=== PATIENT | female | born 1990 | race Caucasian/White ===

== ENCOUNTER 2024-12-24 08:33 | Emergency (ER) | payer MEDICAID, SELFPAY ==
[2024-12-24] VITALS (40 sets, daily range): BP systolic 106–158; BP diastolic 65–112; PULSE 76–117; RESP 12–28; TEMP 36.5; O2SAT 94–99
--- NOTE | 2024-12-24 09:00 | DI.CT_ITS ---
Exam(s) CT HEAD WO EXAM: CT HEAD WO CLINICAL HISTORY: Seizure activity. TECHNIQUE: Imaging Protocol: Axial computed tomography images with coronal and sagittal reformatted images were created and reviewed COMPARISON: No exams were available for comparison FINDINGS: There are no skull fractures. There is no fluid in the visualized paranasal sinuses. There is no evidence of intracranial hemorrhage, mass effect, or shift of midline structures. There are no extra-axial fluid collections. The ventricles are not enlarged or shifted and there is no blood within the ventricular system nor within the basal cisterns. IMPRESSION: No acute intracranial findings on this noninfused CT scan of the brain. RADIATION DOSE DELIVERED: 869.92mGy.cm Total DLP DATA REPOSITORY: All CT scans at this facility are submitted to the National Radiology Data Registry (NRDR) Dose Index Registry (DIR) with the [employer] (ACR). RADIATION OPTIMIZATION: All CT scans at this facility use at least one of these dose optimization techniques: automated exposure control; mA and/or kV adjustment per patient size (includes targeted exams where dose is matched to clinical indication); or iterative reconstruction.
--- NOTE | 2024-12-24 09:04 | ED.GENADUL_ITS ---
Discharge Plan Disposition Patient Disposition: Home Condition: Stable Discharge Details Clinical Impression: Vomiting, Seizure-like activity, UTI (urinary tract infection) Primary Care Provider: Minerva Lopez ED Provider: Irais Esteves Home Meds and New Rx's Prescriptions: New cephalexin 500 mg tablet 500 mg PO BID 7 Days Qty: 14 0RF ondansetron 4 mg tablet,disintegrating 4 mg PO Q8H PRN (Reason: nausea and vomiting) 4 Days Qty: 9 0RF Rx Instructions: Take 1 tablet up to 3 times daily as needed for nausea and vomiting 20 minutes prior to meals. Continued oxcarbazepine 150 mg tablet 150 mg PO BID cyanocobalamin (vitamin B-12) [Vitamin B-12] 1,000 mcg tablet 1,000 mcg PO DAILY gabapentin 100 mg capsule 200 mg PO QHS norethindrone (contraceptive) [Deblitane] 0.35 mg tablet 0.35 mg PO DAILY Discharge Instructions Instructions: Urinary Tract Infection, Adult ED, Nausea and Vomiting, Adult ED, Seizures, Adult ED Additional Instructions: At this time the head CT is within normal limits. CT abdomen pelvis shows that you do have a couple of calcifications noted on the right side of your kidney. No evidence of appendicitis or bowel obstruction. It also appears you have a early urinary tract infection. Please take the medications with yogurt or a probiotic twice daily as directed for the next 7 days. Take the nausea medication 20 to 30 minutes before eating or drinking anything. You were given the first dose of the antibiotic here in the emergency department. Follow up with primary care provider in 3-5 days. Return to ED sooner if any worsening vomiting not able to hold down the medications, headache, fever or concerns. Thank you for allowing us to care for you today. Stand Alone Forms: Work Release Referrals: Minerva Lopez [Primary Care Provider, Medicine] - 3 days Referral Note: ER follow-up, call for an appointment Clinical Impression: UTI (urinary tract infection); Vomiting Discharge Data Discharge Date/Time-TO BE ENTERED AT DEPARTURE: 12/24/24 12:23 HPI General Mode of arrival: ambulatory . Date/Time Provider Initiated Documentation: 12/24/24 08:35 . Limitations to Documentation: no limitations . Information obtained by: patient, RN notes reviewed and old records reviewed . HPI Narrative: 34-year-old female presents to the ER with a chief complaint of seizure-like activity which occurred this morning while on the phone. Patient states she does have a history of seizures and was on the phone this morning when she states that her witnessed her making an odd noise, becoming rigid which lasted approximately 2 minutes per patient report. She then sat up and had violent emesis. This was also associated with very severe headache which has now resolved. She states she did try to take an Excedrin Migraine tablet prior to arrival but did vomit this up. She is alert and oriented x 4 upon arrival, denies any fever or chills neck pain or back pain. 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 She does take oxcarbazepine 150 mg twice daily. She did take this prior to arrival. She does also endorse diarrhea which she states is normal for her. Denies any chest pain shortness of breath cough recent injuries or falls or any other associated symptoms. She does endorse marijuana use denies any other drugs or alcohol. Last normal menstrual period was November 14. Related Data Home Medications ?Medication ?Instructions ?Recorded ?Confirmed cephalexin 500 mg tablet 500 mg PO BID 7 days #14 tab s 12/24/24 cyanocobalamin (vitamin B-12) 1,000 mcg PO DAILY 12/2412/24/24 1,000 mcg tablet (Vitamin B-12) gabapentin 100 mg capsule 200 mg PO QHS 12/24/2412/24 norethindrone (contraceptive) 0.35 0.35 mg PO DAILY 12/24/24 mg tablet (Deblitane) ondansetron 4 mg disintegrating 4 mg PO Q8H PRN nausea and 12/24/24 tablet vomiting 4 days #9 tabs oxcarbazepine 150 mg tablet 150 mg PO BID 12/24/2406/15 Previous Rx's ?Medication ?Instructions ?Recorded cephalexin 500 mg tablet 500 mg PO BID 7 days #14 tab s 12/24/24 ondansetron 4 mg disintegrating 4 mg PO Q8H PRN nausea and 12/24/24 tablet vomiting 4 days #9 tabs Allergies Allergy/AdvReac Type Severity Reaction Status Date / Time Iodinated Contrast Media Allergy Severe Anaphylaxis Verified 12/24/24 10:50 levetiracetam (From [facility]) Allergy Intermediate Other (See Verified 12/24/24 08:46 Comment) General Stated Complaint: Seizure KARISSA: 3 Review of Systems All systems reviewed & are unremarkable except as noted in HPI and below Gastrointestinal Gastrointestinal: Denies abdominal pain, Reports nausea and Reports vomiting Neurologic Neurologic: Reports as per HPI and Reports convulsions Exam Narrative Exam Narrative: Constitutional: Alert and oriented x3. Appears stated age. Normal body habitus. Head: Normocephalic, no trauma. Eyes: Pupils PERRL, Red reflex noted, EOM's intact. Eyelids symmetrical without lesions, discharge, or swelling. ENT: Bilateral TM's WNL, External ear normal to inspection, no mastoid TTP, swelling, or erythema, Nasal turbinates WNL, no nasal discharge. Normal dentition, Posterior pharynx WNL, no exudate. Chest: RRR, Normal S1, S2, distal pulses intact. Resp: Lungs clear to auscultation bilaterally, no wheezes, rales, or rhonchi. Abdomen: Soft, non-distended, Normoactive bowel sounds all 4 quads. Musculoskeletal: Normal gait, Moves all 4 extremities without difficulty. Skin: No suspicious rashes or lesions. Capillary refill less than 2 sec. Neurologic: Cranial nerves II-XII intact. Alert and oriented x 3. Motor: No deficits noted. Sensory: Intact bilaterally all 4 extremities. Hematologic/Lymphatic: No ecchymosis, no lymphadenopathy. Course Vital Signs Vital signs: Vital Signs Temperature 36.5 C 12/24/24 08:36 Pulse 117 H 12/24/24 08:36 Respiratory Rate 18 12/24/24 08:36 Blood Pressure 158/90 H 12/24/24 08:36 Pulse Oximetry 96 12/24/24 08:36 Temperature 36.5 C 12/24/24 08:36 Temperature Source Oral 12/24/24 08:36 Pulse 96 H 12/24/24 08:46 Pulse 98 H 12/24/24 08:46 Respiratory Rate 14 12/24/24 08:46 Respiratory Effort Normal, Non-Labored 12/24/24 08:55 Respiratory Depth Normal 12/24/24 08:55 Respiratory Pattern Normal 12/24/24 08:55 Blood Pressure 134/101 H 12/24/24 08:46 Blood Pressure Mean 111 12/24/24 08:46 Pulse Oximetry 96 12/24/24 08:46 Medical Decision Making 34-year-old female presents to the ER with a chief complaint of seizure-like activity which occurred this morning while on the phone. Patient states she does have a history of seizures and was on the phone this morning when she states that her witnessed her making an odd noise, becoming rigid which lasted approximately 2 minutes per patient report. She then sat up and had violent emesis. This was also associated with very severe headache which has now resolved. She states she did try to take an Excedrin Migraine tablet prior to arrival but did vomit this up. She is alert and oriented x 4 upon arrival, denies any fever or chills neck pain or back pain. 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 She does take oxcarbazepine 150 mg twice daily. She did take this prior to arrival. Workup ordered including CBC CMP lipase ethyl alcohol level, urinalysis urine test, head CT, liter of normal saline and 1 mg of lorazepam p.o. CBC shows a elevated white blood cell count at 22.86 neutrophils 20.12 lactate and blood cultures x 2 added onto labs. 0945: Called to bedside by balance staff inspector as patient believes she is having a seizure, she is awake and in bed, responsive, alert and answers my questions appropriately, she states she feels disoriented. She has received 1mg Lorazepam PO. she states this is typical of her normal seizures. VSS, will continue to monitor, NS infusing without difficulty. Patient to be discharged home at this time with cephalexin and Zofran ODT tablets. Patient is now saying that she has seen a neurologist at [facility] in the past however is no longer seeing them. Is requesting for a referral for n eurologist. Will place patient on the care management list to assist with getting an outpatient follow-up appointment with [facility] neurology. This text was generated using [employer] system, please disregard any oddities of phrase or misspellings. Imaging Data Radiologic Study: Imaging: CT Scan Radiologist's impression: MPRESSION: 1. 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 In addition to a small 2 millimeter calculi there is also a larger 7 x 8 mm calculus in the right kidney. There is dilatation of the anterior pointing right renal pelvis although this does not appear to be related to the calculus, this implying that the mild right-sided hydronephrosis may be related to an element of UPJ obstruction, possibly related to the relative malrotation which occurs with horseshoe kidneys. However, similar findings are not seen in the opposite-left kidney moiety. 2. There are no calculi in in the ureters nor within the nondistended urinary bladder. Lab Data Lab results reviewed: Yes I reviewed the patient's lab results. Labs: 12/24/24 09:55 Blood Blood Culture - Pending 12/24/24 10:13 Blood Blood Culture - Pending Laboratory Tests Range/Units 12/24/24 12/24/24 12/24/24 09:13 10:13 11:27 WBC (4.4-10.8) 10^3/uL 22.86 H RBC (3.93-5.22) 10^6/uL 5.30 H Hgb (11.2-15.7) g/dL 14.8 Hct (36.0-46.0) % 43.8 MCV (80-95) fL 83 MCH (27.0-33.0) pg 27.9 MCHC (32.0-36.0) % 33.8 RDW (11.7-14.6) % 12.8 Plt Count (130-400) 10^3/uL 314 MPV (8.0-11.0) fL 8.9 Immature Gran % % 0.5 Neutrophils % % 88.0 Lymphocytes % % 7.5 Monocytes % % 3.6 Eosinophils % % 0.1 Basophils % % 0.3 Nucleated RBC % (0.0-0.3) % 0.0 Absolute Neutrophils (1.2-6.7) 10^3/uL 20.12 H Absolute Lymphocytes (1.2-3.4) 10^3/uL 1.71 Absolute Monocytes (0.1-0.8) 10^3/uL 0.82 H Absolute Eosinophils (0.0-0.7) 10^3/uL 0.02 Absolute Basophils (0.0-0.2) 10^3/uL 0.07 RBC Morphology Normal VBG Lactate (<or=2.0) mmol/L 1.2 Sodium (136-145) mmol/L 140 Potassium (3.5-5.1) mmol/L 3.3 L Chloride (98-107) mmol/L 103 Carbon Dioxide (21.0-32.0) mmol/L 27.6 Anion Gap (3-11) mmol/L 9.4 BUN (7-18) mg/dL 13 Creatinine (0.55-1.02) mg/dL 0.7 Est GFR (CKD-EPI 2020) (mL/min/1.73m2) 114.88 Glucose (74-106) mg/dL 96 Calcium (8.5-10.1) mg/dL 9.4 Magnesium (1.8-2.4) mg/dL 1.9 Total Bilirubin (0.2-1.0) mg/dL 0.9 AST (15-37) U/L 16 ALT (14-59) U/L 27 Alkaline Phosphatase (46-116) U/L 84 Total Protein (6.4-8.2) g/dL 7.1 Albumin (3.4-5.0) g/dL 4.2 Lipase (<78) U/L 35 Serum HCG, Qual Negative Urine Color (Yellow) Yellow Urine Clarity (Clear) Sl Cloudy Urine pH (5-8) 7.5 Ur Specific [place] (1.005-1.025) 1.020 Urine Protein (Neg-Trace) mg/dL 30 H Urine Ketones (Negative) mg/dL Negative Urine Blood (Negative) Negative Urine Nitrite (Negative) Negative Urine Bilirubin (Negative) Negative Urine Urobilinogen (Up to 0.2) mg/dL 0.2 Ur Leukocyte Esterase (Negative) Small H Urine Glucose (Negative) mg/dL Negative Ethyl Alcohol (<10) mg/dL < 3.0 Add-On Test Request DONE [facility] All Active Problems (Updated 12/24/24 @ 11:57 by Irais Esteves NP) UTI (urinary tract infection) (Acute) Seizure-like activity (Acute) Vomiting (Acute) Social History Smoking/Tobacco Use Status: Never Smoking risk assessment performed?: Yes Alcohol Intake: never Drug use: Daily Substance use type: marijuana
[2024-12-24 09:23] LABS: Abs Immature Grans 0.11 10^3/uL (0.0-0.06); HCT 43.8 % (36.0-46.0); HGB 14.8 g/dL (11.2-15.7); Immature Grans % 0.5 %; MCH 27.9 pg (27.0-33.0); MCHC 33.8 % (32.0-36.0); MCV 83 fL (80-95); MPV 8.9 fL (8.0-11.0); Platelet Count 314 10^3/uL (130-400); RBC 5.30 10^6/uL (3.93-5.22); RDW 12.8 % (11.7-14.6); RDW-SD 38.5 fL; WBC 22.86 10^3/uL (4.4-10.8)
[2024-12-24] MEDS: Normal Saline 1,000 ML 1000 ML IV (09:26)
[2024-12-24] MEDS: LORazepam 1 MG TAB PO (09:26)
[2024-12-24 09:39] LABS: ALT 27 U/L (14-59); AST 16 U/L (15-37); Albumin 4.2 g/dL (3.4-5.0); Alkaline Phosphatase 84 U/L (46-116); Anion Gap 9.4 mmol/L (3-11); BUN 13 mg/dL (7-18); Bilirubin, Total 0.9 mg/dL (0.2-1.0); CO2 27.6 mmol/L (21.0-32.0); Calcium 9.4 mg/dL (8.5-10.1); Chloride 103 mmol/L (98-107); Estimated GFR 114.88 (mL/min/1.73m2); Glucose 96 mg/dL (74-106); Lipase 35 U/L (<78); Magnesium 1.9 mg/dL (1.8-2.4); Potassium 3.3 mmol/L (3.5-5.1); Sodium 140 mmol/L (136-145); Total Protein 7.1 g/dL (6.4-8.2)
[2024-12-24 09:42] LABS: RBC Morphology Normal
[2024-12-24 10:11] LABS: Lab Add On Test DONE
[2024-12-24 10:20] LABS: HCG Qual (Serum) Negative
--- NOTE | 2024-12-24 10:45 | DI.CT_ITS ---
Exam(s) CT ABDOMEN PELVIS WO EXAM: CT ABDOMEN PELVIS WO CLINICAL HISTORY: Vomiting. TECHNIQUE: Imaging Protocol: Axial computed tomography images with coronal and sagittal reformatted images were created and reviewed CONTRAST MATERIAL: Intravenous: none Oral: None COMPARISON: No exams were available for comparison FINDINGS: VISUALIZED LUNG BASES: There are mild increased markings in the inferior lingular segment of the left lung. There are no pleural effusions.. ABDOMEN: There is no ascites. LIVER: There are no obvious focal hepatic lesions evident of this noninfused study. GALLBLADDER/BILIARY: No obvious gallbladder pathology. CBD is not dilated. PANCREAS: No evidence of pancreatic mass nor dilatation of the pancreatic duct. SPLEEN: Spleen is not enlarged. No obvious intrasplenic lesions. ADRENALS: There are no significant adrenal masses. KIDNEYS:Horseshoe kidney. There is a 7 x 8 mm calculus in the lower aspect of the right renal pelvis with some mild hydronephrosis above that level. Are 2 additional tiny nonobstructive calculi in inferior aspect of the right kidney. There are no calculi in the isthmus joining the 2 kidneys across the midline nor within the left kidney and left ureter. No solid renal masses nor cysts evident. ABDOMINAL AORTA: Abdominal aorta is not enlarged. LYMPH NODES: There is no retroperitoneal nor paraaortic adenopathy. ABDOMINAL WALL: No evidence of significant anterior abdominal wall nor inguinal hernia. GI: There is no evidence of bowel obstruction, free air, nor abscess. PELVIS: LYMPH NODES: There is no intrapelvic nor inguinal adenopathy. GI: No evidence of appendicitis.There are few uncomplicated diverticuli in left side of the colon and sigmoid. No evidence of acute diverticulitis. URINARY BLADDER: No calculi nor obvious masses evident REPRODUCTIVE: Uterus size and adnexal regions appear age-appropriate. A follicular cyst is noted in left ovary. It measures 2 cm. There is no surrounding fluid in left adnexa nor in the cul-de-sac. OSSEOUS: No significant osseous lesions. No fractures. IMPRESSION: 1. 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 In addition to a small 2 millimeter calculi there is also a larger 7 x 8 mm calculus in the right kidney. There is dilatation of the anterior pointing right renal pelvis although this does not appear to be related to the calculus, this implying that the mild right-sided hydronephrosis may be related to an element of UPJ obstruction, possibly related to the relative malrotation which occurs with horseshoe kidneys. However, similar findings are not seen in the opposite-left kidney moiety. 2. There are no calculi in in the ureters nor within the nondistended urinary bladder. Reports of the CT scans called by myself to ER provider 12/24/2024 at 11:20 a.m. RADIATION DOSE DELIVERED: 676.17mGy.cm Total DLP DATA REPOSITORY: All CT scans at this facility are submitted to the National Radiology Data Registry (NRDR) Dose Index Registry (DIR) with the [employer] (ACR). RADIATION OPTIMIZATION: All CT scans at this facility use at least one of these dose optimization techniques: automated exposure control; mA and/or kV adjustment per patient size (includes targeted exams where dose is matched to clinical indication); or iterative reconstruction.
[2024-12-24] MEDS: Ondansetron O.D.T. 4 MG TABEF PO (11:10)
[2024-12-24 11:45] LABS: Glucose Negative (Negative)
[2024-12-24 11:57] LABS: C & S Indicated? Yes; RBC 0-2 HPF (0-2); WBC 20-50 HPF (0-5)
[2024-12-24 12:02] LABS: Cannabinoids THC Positive (Negative); METHADONE URINE SCREEN Negative (Negative)
[2024-12-24] MEDS: Cephalexin 500 MG CAP PO (12:19)
[2024-12-24] MEDS: Ondansetron O.D.T. 4 MG TABEF, 3 TABS/BTL PO (12:19)
--- NOTE | 2024-12-27 17:19 | NUR.NOTE ---
Access chart to determine if a referral was done and completed. Nursing Note:
== END 2024-12-24 12:23 | disposition home or self-care (01) ==
PROVIDERS: Emergency Provider Registered Nurse Emergency; PCP Family Medicine
DX: R56.9 Unspecified convulsions (principal); N39.0 Urinary tract infection, site not specified; R11.10 Vomiting, unspecified
CPT/HCPCS: 36415; 80053; 80307; 83690; 87040; 96360; 99284; 70450; 74176; 80320; 81003; 81015; 83605; 83735; 84703; 85025; 87086

== ENCOUNTER 2025-01-18 01:04 | Outpatient (CLI) | payer MEDICAID, SELFPAY ==
--- NOTE | 2025-01-18 | DI.US_ITS ---
Exam(s) US RENAL EXAM: US RENAL CLINICAL HISTORY: BILAT KIDNEY STONES,N20.0,HORSESHOE KIDNEY,? STONE TECHNIQUE: Ultrasound of both kidneys performed using standard protocol. COMPARISON: CT CT ABDOMEN PELVIS WO from 12/24/2024 FINDINGS: Horseshoe kidney configuration was noted on CT scan of 12/24/2024. RIGHT KIDNEY MOIETY: No cysts evident. Normal cortical thickness and corticomedullary differentiation .No solid masses There is a 13 mm calculus evident in the renal pelvis and there is mild hydronephrosis the right-side moiety above this level. LEFT KIDNEY MOIETY: No cysts evident. Normal cortical thickness and corticomedullary differentiation. No solids masses. No intrarenal calculi nor hydonephrosis associated with the left side of the or shoe kidney. URINARY BLADDER: Prevoid volume is 201 cc Postvoid volume is 10 cc No evidence of bladder mass nor diverticuli. Ureterovesical jets: Both identified and appear symmetrical IMPRESSION: 1. Horseshoe kidney configuration. There is a 13 mm shadowing calculus in the right renal pelvis associated with mild hydronephrosis of the right-side of the horseshoe kidney. 2. There are no calculi and no hydronephrosis associated with the left side of the horseshoe kidney. Urinary bladder appears unremarkable. DATA REPOSITORY:
--- NOTE | 2025-01-18 | DI.RAD_ITS ---
Exam(s) XR ABDOMEN FLAT PLATE EXAM: XR ABDOMEN FLAT PLATE CLINICAL HISTORY: BILAT KIDNEY STONES, N20.0,? CURRENT POSSIBLE STONE. TECHNIQUE: 2D digital imaging was performed. COMPARISON: CT CT ABDOMEN PELVIS WO from 12/24/2024 FINDINGS: AP supine view the abdomen-pelvis, compared to CT scan 12/24/2024 The bowel gas pattern is nonspecific. This patient is horseshoe kidney configuration is seen on recent CT scan. The solitary right-sided calculus is again noted measuring approximately 9 x 7 mm and probably a similar location to the CT scan of 12/24/2024, allowing for the horseshoe configuration. Therefore this is probably located in the anterior located right renal pelvis.. There are no additional calculi seen lower down long course of the ureters nor over the area of the urinary bladder. Regional bones unremarkable. IMPRESSION: Solitary 9 x 7 mm right-sided calculus probably in similar position with respect of the right-side of the versus kidney as evident on the recent CT scan of 12/24/2024. DATA REPOSITORY: RADIATION DOSE DELIVERED:
== END 2025-01-18 01:24 ==
LOC: DI 01:04
PROVIDERS: PCP Family Medicine; Visit Provider Naturopath
DX: N20.0 Calculus of kidney (principal)
CPT/HCPCS: 76770; 74018

== ENCOUNTER 2025-01-31 07:19 | Day surgery (SDC) | payer MEDICAID, SELFPAY ==
[2025-01-31] VITALS (16 sets, daily range): BP systolic 82–132; BP diastolic 47–112; PULSE 74–102; RESP 11–22; TEMP 36.4–37.1; O2SAT 90–98; BMI 33.0
[2025-01-31] MEDS: Lactated Ringers 1,000 ML 80 ML IV (08:35)
--- NOTE | 2025-01-31 09:03 | W.ANESPRE ---
General Info Date of Service Date Performed: 01/31/25 Height: 5 ft 4 in Weight: 87.5 kg Body Mass Index (BMI): 33.0 Surgical Procedure: Operation Date: 01/31/25 08:55 Proposed Procedure Side Surgeon p Cystoscopy/Retrograde/Ureteroscopy/Stone Manipulation/ ?Stent Right Juan Baxter MD Meds Allergies and Home Medications Allergies Allergy/AdvReac Type Severity Reaction Status Date / Time Iodinated Contrast Media Allergy Severe Anaphylaxis Verified 01/31/25 07:51 levetiracetam (From [facility]) Allergy Intermediate Other (See Verified 01/31/25 07:51 Comment) Home Medication Medication Instructions Recorded cyanocobalamin (vitamin B-12) 1,000 mcg PO DAILY 12/24/24 1,000 mcg tablet (Vitamin B-12) gabapentin 100 mg capsule 200 mg PO QHS 12/24/24 norethindrone (contraceptive) 0.35 0.35 mg PO DAILY 12/24/24 mg tablet (Deblitane) oxcarbazepine 150 mg tablet 300 mg PO BID 12/24/24 Current Visit Medications: Current Medications Generic Name Dose Route Start Last Admin Trade Name Freq PRN Reason Stop Dose Admin Ringer's Solution 1,000 mls @ 80 mls/hr 01/31/25 06:00 01/31/25 08:35 IV 01/31/25 23:59 80 mls/hr INFUSION KERRI Administration Cefazolin Sodium/Dextrose 2 gm in 50 mls @ 100 mls/hr 01/31/25 06:00 Ancef Duplex IVPB 01/31/25 23:59 PREOP KERRI IV Miscellaneous Supplies 1 each 01/31/25 06:00 Iv Access IV 01/31/25 23:59 DIRECTED KERRI Sodium Chloride 0 ml 01/31/25 06:00 Normal Saline Flush 10 Ml Syr IV 01/31/25 23:59 PRN PRN Sodium Chloride 0 ml 01/31/25 06:00 Normal Saline 10 Ml Vial IJ 01/31/25 23:59 DIRECTED PRN Sterile Water 0 ml 01/31/25 06:00 Water,Injection,Sterile 10 Ml Vial IJ 01/31/25 23:59 DIRECTED PRN PFSH Active Problems Active Problems: Problem Status Onset Code Difficult intravenous access Acute Z78.9 Kidney stone Chronic N20.0 Medical History Medical History (Updated 01/31/25 @ 08:17 by Mary Russell) Acid reflux Focal seizure medically managed- 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 Myles. Last seen 12/20/24 RLS (restless legs syndrome) Medical History Comments:: Daily cannibas. Surgical History Surgical History Hx of section x2 Hx of colonoscopy Hx of lithotripsy Tobacco Smoking/Tobacco Use Status: Former Tobacco Use Passive smoking exposure: No Alcohol Alcohol Intake: current Alcohol intake frequency: holidays/special occasions only Substance Use Substance use: Daily Substance use type: marijuana Vital Signs and Lab Results Vital Signs Most Recent Vital Signs in EMR: Most Recent Vital Signs Temp Pulse Resp BP Pulse Ox 37.1 C 87 16 105/63 98 01/31/25 07:28 01/31/25 07:28 01/31/25 07:28 01/31/25 07:28 01/31/25 07:28 Point of Care Results Point of Care Results: POC- Test(urine) Negative 01/31/25 07:57 Anesthesia Assessment and Plan Anesthesia History Personal History: No History of Anesthesia Complications Family History: No Family History of Anesthesia Complications Exercise Tolerance Exercise Tolerance: Metabolic Equivalents>4 Pertinent Negatives Pertinent Negatives: No Major Cardiovascular Symptoms or Complaints, No Major Pulmonary Symptoms or Complaints and No History of CVA/TIA Cardiac & Pulmonary Exam Cardiac Exam: Normal S1/S2 Heart Sounds Pulmonary Exam: Clear Bilateral Breath Sounds Implantable Cardiac Device Does patient have a Pacemaker or an ICD?: No Airway Exam Known Difficult Airway: No Mallampati Class: 2 Mouth Opening: Narrow (< 3cm) Thyromental Distance: Less than 3 cm Neck Range of Motion: Full ROM Neck Circumference: Normal Teeth Condition: Normal Dentition ASA Classification ASA Score: ASA 2 Emergency Case?: No NPO Status NPO Status: NPO Clears >2 hours, Solids >8 hours Status Status: Negative HCG Anesthesia Plan Resuscitation Status: Full Code Anesthesia Technique: General Anesthesia Airway Planned: Endotracheal Tube Monitors Used: Standard Monitors Preoperative Comments:: Patient with daily marijuana, up to 8x per day with vape pen and oil. GERD symptoms with stress, reports symptomatic this morning. Plan GA with ETT.
--- NOTE | 2025-01-31 09:18 | W.PM.HP.N ---
Date of service: 01/31/25 Time of Service: 09:18 Assessment and Plan Assessment and plan (1) Kidney stone: Status: Chronic (2) Horseshoe kidney: Assessment and plan: We will move forward with cystoscopy, retrograde pyelogram and flexible ureteroscopy. As long as we can access the stone, we will treat it with holmium laser. If we are unable to access the stone, she will receive a ureteral stent and require at least 1 return trip to the operating room for laser lithotripsy. Given the size of the stone, even if we are able to access the stone today, she will likely will need a staged procedure. History of Present Illness History of Present Illness Chief Complaint: Right kidney stone Narrative: Marielena is a 34-year-old female referred to urology by her knot bumper for kidney stones. Patient notes that she has had lithotripsy by Dr. Alvarado out of [facility] approximately every 4 to 5 years with her last session being in 2020. Patient notes that her last office visit with Dr. Alvarado was in May 2024. She was informed that everything was well and no concerns. More recently she was in the emergency room approximately a month ago for concerns of seizure activity. CT was done and patient was informed that she had a larger stone in the right kidney. Patient has had intermittent right renal colic concern since but has not needed to take pain medications. She denies dysuria, gross hematuria, change in LUTS or suprapubic discomfort. She occasionally will have a throbbing to the right kidney area. Patient does note as a result of the ER visit the size being told about the kidney stone she was also informed she had a urinary tract infection was treated with antibiotics. She has no history of gout or parathyroid disease. She was informed that her stones are calcium based. She initially preferred to have ESWL treatment again so she was referred to another institution that Had access to a lithotripter. Since then, her stone symptoms have worsened and she would like to expedite her treatment with ureteroscopy and holmium laser lithotripsy. 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 Myles. Last seen 12/20/24 RLS (restless legs syndrome) Surgical History Hx of section x2 Hx of colonoscopy Hx of lithotripsy Social History Smoking/Tobacco Use Status: Former Tobacco Use Quit Date: 03/24/14 Smoking risk assessment performed?: Yes Alcohol Intake: current Alcohol Intake frequency: holidays/special occasions only Drug use: Daily Substance use type: marijuana Housing: house Additional [facility] Med[facility] Allergies and Home Medications Allergies Allergy/AdvReac Type Severity Reaction Status Date / Time Iodinated Contrast Media Allergy Severe Anaphylaxis Verified 01/31/25 07:51 levetiracetam (From [facility]) Allergy Intermediate Other (See Verified 01/31/25 07:51 Comment) Home Medications Medication Instructions Recorded Confirmed Type cyanocobalamin (vitamin B-12) 1,000 mcg PO DAILY 12/24/24 01/31/25 History 1,000 mcg tablet (Vitamin B-12) gabapentin 100 mg capsule 200 mg PO QHS 12/24/24 01/31/25 History norethindrone (contraceptive) 0.35 0.35 mg PO DAILY 12/24/24 01/31/25 History mg tablet (Deblitane) oxcarbazepine 150 mg tablet 300 mg PO BID 12/24/24 01/31/25 History Exam Const General: cooperative Neck Neck: supple Resp Effort & Inspection: normal respiratory effort Auscultation: clear to auscultation bilaterally Cardio Rate: regular rate Rhythm: regular rhythm GI Palpation: soft and no masses Neuro General: patient alert, patient awake and patient oriented x3 Results Last Vital Signs Temp 37.1 C 01/31/25 07:28 Pulse 87 01/31/25 07:28 Resp 16 01/31/25 07:28 BP 105/63 01/31/25 07:28 Pulse Ox 98 01/31/25 07:28 Time Spent Time spent with Patient: <40 minutes Time was spent: other
[2025-01-31] MEDS: ceFAZolin 2 GM/50 ML BAG IVPB (09:55)
[2025-01-31] MEDS: Omnipaque 300 MG/ML 50 ML BTL (10:17)
[2025-01-31] MEDS: Lidocaine 2% Jelly 11 ML SYR (10:18)
--- NOTE | 2025-01-31 10:50 | PDOC.DSDIS_ITS ---
Date of service: 01/31/25 Discharge Plan Disposition Patient Disposition: Home Condition: Stable Discharge Details Attending Provider: Juan Baxter Primary Care Provider: Minerva Lopez Recommendations for Follow Up Recommended tests to be ordered by follow up provider: renal ultrasound in 8 weeks Home Meds and New Rx's Prescriptions: New oxycodone 5 mg tablet 5 - 10 mg PO Q6H PRN (Reason: pain) Qty: 20 0RF Rx Instructions: may take with tylenol and NSAIDs No Action oxcarbazepine 150 mg tablet 300 mg PO BID cyanocobalamin (vitamin B-12) [Vitamin B-12] 1,000 mcg tablet 1,000 mcg PO DAILY gabapentin 100 mg capsule 200 mg PO QHS norethindrone (contraceptive) [Deblitane] 0.35 mg tablet 0.35 mg PO DAILY Discharge Instructions Additional Instructions: There is no need to strain your urine You have a ureteral stent running from the right kidney down to your bladder. There is a string attached to the stent and the string has been tucked into your vaginal cavity. The stent can be removed in our office toward the end of the week. If the stent comes out sooner, there is no significant problem. While the stent is present, it is not unusual to see blood in the urine, urinate more frequently or have discomfort when you urinate. You will have 2 followup visits in our office. the first will be later this week to have your stent removed. The second appointment will be after your ultrasound is done in about 6 to 8 weeks Stand Alone Forms: Portal Information Activity:: Activity as Tolerated Shower/Bathe:: 24 hours Diet:: As Tolerated Discharge Orders Discharge Orders: Discharge Order (Routine); Ordered 01/31/25 Ordered By: Juan Baxter Other Ambulatory Orders: US renal (Routine) Timeframe: 6 Weeks Facility: [facility] - Location: DIAGNOSTIC IMAGING Ordered By: Juan Baxter DS: Diagnosis Discharge Diagnosis (1) Kidney stone: Status: Chronic (2) Horseshoe kidney:
--- NOTE | 2025-01-31 11:00 | DI.RAD_ITS ---
Exam(s) XR RETROGRADE IN OR EXAM: XR RETROGRADE IN OR CLINICAL HISTORY: Right kidney stone. TECHNIQUE: Fluoroscopy was provided for the referring physician for guidance with performing retrograde procedure. COMPARISON: CR XR ABDOMEN FLAT PLATE from 01/18/2025 FINDINGS: Please see procedure note for details. Fluoro time: 27.9 seconds RADIATION DOSE DELIVERED: viviane Small=5.66 mGy
--- NOTE | 2025-01-31 11:01 | ROE_ITS ---
Operative Note Operative Note PRE-OP DIAGNOSIS: Right kidney stone POST-OP DIAGNOSIS: same PROCEDURE: cystoscopy, right retrograde pyelogram, right flexible ureteroscopy with holmium laser lithotripsy, stone fragment extraction, insert right ureteral stent SURGEON: Juan Baxter ANESTHESIA TYPE: Local By Surgeon and General LMA/ETT Refer to Anesthesia Record ESTIMATED BLOOD LOSS: 5 PATHOLOGY: other (stone for chemical analysis) COMPLICATIONS: None Patient was transported to: PACU Patient's condition: stable Implants: 6 Panamanian by 22 to 30 cm right ureteral stent with string attached Indications: This is a 34-year-old woman who has a history of a horseshoe kidney and kidney stones. She has been treated with ESWL in the past. She recently presented to the emergency department and was identified as having a large stone in the right renal pelvis. She initially requested a referral to an institution that could perform ESWL for her, but her symptoms began to worsen . In the interest of time, she called back to the office asking if we could address the stone ureteroscopically. Findings: large stone in midpole calyx Procedure Description: The patient was given IV antibiotics and brought to the operating room on 01/31/2025. After successful induction of general anesthesia, she was placed in the dorsal lithotomy position. Her genitalia was prepped and draped. 2% Xylocaine jelly was instilled into the urethra. A 22 [place]ian rigid cystoscope was passed through the urethra into the bladder. The bladder was inspected with a 30 degree lens. Both ureteral orifices appeared normal with no blood coming from either side. No stones were seen within the bladder. The right orifice was cannulated with a 5 Panamanian access catheter. Retrograde pyelogram was obtained by injecting Omnipaque through the access catheter under fluoroscopic guidance. A radiopaque stone was seen in one of the midpole calyces. A guidewire was passed through the lumen of the access catheter and the catheter was removed. A dual-lumen catheter was then passed over the wire and a second wire was positioned. We chose one of the wires as a working wire and 1 is a safety wire. I then passed the ureteral access sheath over the working wire leaving the safety wire in place. I passed the flexible ureteroscope through the lumen of the access sheath and advanced the scope up to the right kidney. We inspected each of the calyces and found a large stone within one of the midpole calyces. I treated the stone with a 272 µm holmium laser fiber. We used a combination of dusting and fragmentation settings. As the stone fragmented, we grasped multiple stone fragments and a ZeroTip stone basket and extracted them individually. The collection of stones was sent to pathology for chemical analysis. At the completion of the procedure, I saw no residual large stone burden. I removed the flexible ureteroscope and did not visualize any ureteral injuries. We removed the access sheath and passed a 6 Panamanian variable length stent over the safety wire. We positioned the stent with the proximal and curled in the renal pelvis and the distal end curled within the bladder. The positioning of the stent was confirmed fluoroscopically. The patient tolerated this procedure well with no complications. She was taken to the recovery room in stable condition. Date of Procedure: 01/31/25
[2025-01-31] MEDS: Phenazopyridine 200 MG TAB PO (11:32)
--- NOTE | 2025-01-31 11:52 | W.ANESPOSTOP ---
Postoperative Evaluation Date, Time and Location Date Performed: 01/31/25 Time Performed: 11:52 Patient Location: Day Surgery Unit Vital Signs Most Recent Imported Vital Signs: Most Recent Vital Signs Temp Pulse Resp BP Pulse Ox 36.5 C 85 16 92/58 L 93 01/31/25 11:19 01/31/25 11:19 01/31/25 11:19 01/31/25 11:35 01/31/25 11:19 Pain Score Most Recent Pain Score: Most Recent Pain Score Pain Level 5 01/31/25 11:19 Assessment Mental Status: Awake (Alert & Oriented to Patient Baseline) Airway and Respiratory Function: Patent airway with normal (patient baseline) respiratory exam Cardiovascular Function: Hemodynamically Stable Hydration Status: Adequately Hydrated Nausea & Vomiting: No Nausea or Vomiting Pain: Pt. Denies Any Pain Peripheral Nerve Block: Patient did not receive a nerve block
== END 2025-01-31 12:25 | disposition home or self-care (01) ==
PROVIDERS: PCP Family Medicine; Visit Provider Urology
PROC: (CPT 52356; principal; 2025-01-31 08:45)
DX: N20.0 Calculus of kidney (principal); Q63.1 Lobulated, fused and horseshoe kidney
CPT/HCPCS: 52356; 74420; 82365; J0131; J0690; J1100; J1885; J2003; J2250; J2405; J2704; J3010; Q9967

== ENCOUNTER 2025-02-08 08:25 | Emergency (ER) | payer MEDICAID, SELFPAY ==
[2025-02-08 08:28] VITALS: BP 143/91; PULSE 85; RESP 15; TEMP 36.7; O2SAT 98
[2025-02-08 08:32] VITALS: BP 143/91; PULSE 85; RESP 15; TEMP 36.7; O2SAT 98
[2025-02-08 09:12] LABS: Abs Immature Grans 0.03 10^3/uL (0.0-0.06); HCT 46.5 % (36.0-46.0); HGB 15.6 g/dL (11.2-15.7); Immature Grans % 0.3 %; MCH 27.6 pg (27.0-33.0); MCHC 33.5 % (32.0-36.0); MCV 82 fL (80-95); MPV 8.7 fL (8.0-11.0); Platelet Count 339 10^3/uL (130-400); RBC 5.66 10^6/uL (3.93-5.22); RDW 13.0 % (11.7-14.6); RDW-SD 39.0 fL; WBC 10.82 10^3/uL (4.4-10.8)
[2025-02-08] MEDS: Normal Saline 1,000 ML 1000 ML IV (09:27)
[2025-02-08] MEDS: Ketorolac 15 MG/ML VIAL IVP (09:28)
[2025-02-08] MEDS: ACETAMINOPHEN 1,000 MG/100 ML BAG 400 MG IVPB (09:28)
[2025-02-08] MEDS: Ondansetron 4 MG/2 ML VIAL IVP (09:28)
[2025-02-08 09:36] LABS: Lipase 124 U/L (<53)
[2025-02-08 09:39] LABS: ALT 90 U/L (10-49); AST 47 U/L (<34); Albumin 4.8 g/dL (3.4-5.0); Alkaline Phosphatase 101 U/L (46-116); Anion Gap 10 mmol/L (3-11); BUN 19 mg/dL (9-23); Bilirubin, Total 0.40 mg/dL (0.2-1.2); CO2 25.0 mmol/L (20.0-31.0); Calcium 9.8 mg/dL (8.3-10.6); Chloride 106 mmol/L (98-107); Glucose 93 mg/dL (74-106); Potassium 3.9 mmol/L (3.5-5.1); Sodium 141 mmol/L (136-145); Total Protein 7.4 g/dL (5.7-8.2)
[2025-02-08 10:09] VITALS: BP 102/43; PULSE 73; RESP 16; TEMP 36.7; O2SAT 99
[2025-02-08 10:16] LABS: Glucose Negative (Negative)
--- NOTE | 2025-02-08 10:23 | DI.CT_ITS ---
Exam(s) CT ABDOMEN PELVIS WO EXAM: CT ABDOMEN PELVIS WO CLINICAL HISTORY: exquisite ABD pain; lithotripsy 10d ago. TECHNIQUE: Imaging Protocol: Axial computed tomography images with coronal and sagittal reformatted images were created and reviewed. Oral: / no COMPARISON: CT CT ABDOMEN PELVIS WO from 12/24/2024 US US RENAL from 01/18/2025 CR XR ABDOMEN FLAT PLATE from 01/18/2025 XA XR RETROGRADE IN OR from 01/31/2025 FINDINGS: Lung Bases: No acute findings. Liver: Normal density. No suspicious mass. Gallbladder and biliary tract: No radiodense calculus or biliary dilation. Pancreas: Normal density. No abnormal calcifications or inflammatory process. Spleen: Normal. Kidneys: A horseshoe kidney is again noted. Interval decrease in size of previously noted calcification at the lower pole of the right moiety. Fragment of the calcifications now position within a midpole gayla. This measures 12 x 5 millimeters and appears partially fragmented. Stable dilatation of the right renal pelvis. Adrenal glands: No masses seen. Lymph nodes: Within normal limits. Vasculature: Abdominal aorta non-dilated. Soft tissues: Unremarkable. Bladder: No wall thickening. No mass or calculi. Bowel: No obstruction or bowel wall thickening. Mild diverticulosis. Normal quantity of stool. Appendix appears normal. Peritoneal cavity: No ascites. No focal collection. No mesenteric inflammatory response. Reproductive organs: Unremarkable. Bones: Unremarkable for age. IMPRESSION: Status post lithotripsy with some fragmentation of the previously noted stone noted at the right lower pole with a portion now seen within the mid pole calyx. Stable dilatation of the right renal pelvis without visible obstructing stone. RADIATION DOSE DELIVERED: Total DLP DATA REPOSITORY: All CT scans at this facility are submitted to the National Radiology Data Registry (NRDR) Dose Index Registry (DIR) with the [employer] (A[employer]). RADIATION OPTIMIZATION: All CT scans at this facility use at least one of these dose optimization techniques: automated exposure control; mA and/or kV adjustment per patient size (includes targeted exams where dose is matched to clinical indication); or iterative reconstruction.
[2025-02-08 10:29] LABS: C & S Indicated? No; RBC >50 HPF (0-2)
--- NOTE | 2025-02-08 10:35 | W.ED.GENAD ---
Discharge Plan Disposition Patient Disposition: Home Condition: Stable Discharge Details Clinical Impression: Pancreatitis Primary Care Provider: Minerva Lopez ED Provider: Jackson Monge Home Meds and New Rx's Prescriptions: Continued oxcarbazepine 150 mg tablet 300 mg PO BID cyanocobalamin (vitamin B-12) [Vitamin B-12] 1,000 mcg tablet 1,000 mcg PO DAILY gabapentin 100 mg capsule 200 mg PO QHS norethindrone (contraceptive) [Deblitane] 0.35 mg tablet 0.35 mg PO DAILY Discharge Instructions Instructions: Acute pancreatitis, Ondansetron Additional Instructions: You were seen in the emergency department for your abdominal pain as well as some nausea and vomiting and diarrhea with recent lithotripsy. Your CT scan shows no acute pathology, your urine shows no infection your blood work is reassuring for no signs of systemic infection or major electrolyte abnormality. He did have elevated lipase indicating pancreatitis but no biliary obstruction on ultrasound. Please try to have your primary care provider see if they can recheck your lipase by the end of the week but return here for any intractable nausea or vomiting and worsening especially with fever. Please try to keep your food intake to a minimum over the next 24 to 48 hours and do a clear fluid diet as well as Tylenol and ibuprofen as needed for pain and use the provided ondansetron tablets for any acute nausea. Stand Alone Forms: Portal Information Referrals: Minerva Lopez [Primary Care Provider, Medicine] Discharge Data Discharge Date/Time-TO BE ENTERED AT DEPARTURE: 02/08/25 12:37 HPI General Date/Time Provider Initiated Documentation: 02/08/25 08:33. HPI Narrative: 34 year-old female presents to ED today by POV/ambulating with a chief complaint of nausea, vomiting, and diarrhea with some flank pain with onset around 0300 this morning- questions if it's related to her lithotripsy one week ago. Quality described as generalized GI symptoms, swollen lymph nodes in neck, no radiation to fever, cough, shortness of breath, chest pain, hematochezia/melena. Severity is described as moderate. Palliating factors include nothing specific. Provoking factors include nothing specific. Patient not anticoagulated. Related Data Home Medications Medication Instructions Recorded Confirmed cyanocobalamin (vitamin B-12) 1,000 mcg PO DAILY 12/24/24 02/08/25 1,000 mcg tablet (Vitamin B-12) gabapentin 100 mg capsule 200 mg PO QHS 12/24/24 02/08/25 norethindrone (contraceptive) 0.35 0.35 mg PO DAILY 12/24/24 02/08/25 mg tablet (Deblitane) oxcarbazepine 150 mg tablet 300 mg PO BID 12/24/24 02/08/25 Allergies Allergy/AdvReac Type Severity Reaction Status Date / Time Iodinated Contrast Media Allergy Severe Anaphylaxis Verified 02/08/25 08:33 levetiracetam (From Kera) Allergy Intermediate Other (See Verified 02/08/25 08:33 Comment) General Stated Complaint: Nausea/Vomit/Diar KARISSA: 3 Review of Systems All systems reviewed & are unremarkable except as noted in HPI and below Exam Narrative Exam Narrative: GENERAL APPEARANCE: Well-nourished, non-toxic, awake and alert, atraumatic, mild acute distress. SKIN: Warm, pink, dry, intact, without rashes/lesions/ulcerations. HEAD: Normocephalic, atraumatic, normal hair distribution for gender/age. EYES: Normal conjunctiva, no exudates on lids/lashes. ENT: Nares patent, no circumoral cyanosis, no facial swelling NECK: Supple, trachea midline, painless cervical ROM. LUNGS/CHEST: Lungs CTA bilaterally- no rhonchi/rales/wheezes diffusely, non-labored respirations, normal A/P diameter, symmetrical expansion, no chest wall deformity HEART (CV/PV): Regular rate and rhythm without murmur, no peripheral edema, no JVD. ABDOMEN: Soft, non-distended, no guarding, R CVA tenderness to percussion, RUQ/epigastric tenderness without Chapman's sign. MSK: Normal ROM, no swelling/deformity to bilateral UEs or LEs, moving all extremities without weakness, no cyanosis, spine midline without tenderness, normal curvature. NEURO: Mental Status AAOx4 - alert to person, place, time, events No facial droop, no forehead involvement. Motor: No focal weakness - strength 5/5 in bilateral UEs and LEs, proximal and distal, symmetric. Sensory: sensation intact to light touch globally. Gait normal: patient ambulated without ataxia into ED room. PSYCH: euthymic, cooperative, pleasant, appropriate speech Course Vital Signs Vital signs: Vital Signs Temperature 36.7 C 02/08/25 08:28 Pulse 85 02/08/25 08:28 Respiratory Rate 15 02/08/25 08:28 Blood Pressure 143/91 H 02/08/25 08:28 Pulse Oximetry 98 02/08/25 08:28 Temperature 36.7 C 02/08/25 10:09 Temperature Source Oral 02/08/25 10:09 Pulse 73 02/08/25 10:09 Respiratory Rate 16 02/08/25 10:09 Blood Pressure 102/43 L 02/08/25 10:09 Blood Pressure Mean 62 02/08/25 10:09 Blood Pressure Position Sitting 02/08/25 08:32 Pulse Oximetry 99 02/08/25 10:09 Oxygen Delivery Method Room Air 02/08/25 08:32 Oxygen Flow Rate 0 02/08/25 08:32 Pain Level 3 02/08/25 08:32 Comment intense intermittent sharp pain 02/08/25 08:32 Lab/Test Results Lab/Test Results: Laboratory Tests Range/Units 02/08/25 02/08/25 09:06 09:58 WBC (4.4-10.8) 10^3/uL 10.82 H RBC (3.93-5.22) 10^6/uL 5.66 H Hgb (11.2-15.7) g/dL 15.6 Hct (36.0-46.0) % 46.5 H MCV (80-95) fL 82 MCH (27.0-33.0) pg 27.6 MCHC (32.0-36.0) % 33.5 RDW (11.7-14.6) % 13.0 Plt Count (130-400) 10^3/uL 339 MPV (8.0-11.0) fL 8.7 Immature Gran % % 0.3 Neutrophils % % 64.3 Lymphocytes % % 26.9 Monocytes % % 5.0 Eosinophils % % 3.0 Basophils % % 0.5 Nucleated RBC % (0.0-0.3) % 0.0 Absolute Neutrophils (1.2-6.7) 10^3/uL 6.96 H Absolute Lymphocytes (1.2-3.4) 10^3/uL 2.91 Absolute Monocytes (0.1-0.8) 10^3/uL 0.54 Absolute Eosinophils (0.0-0.7) 10^3/uL 0.32 Absolute Basophils (0.0-0.2) 10^3/uL 0.05 VBG Lactate (<or=2.0) mmol/L 1.3 Sodium (136-145) mmol/L 141 Potassium (3.5-5.1) mmol/L 3.9 Chloride (98-107) mmol/L 106 Carbon Dioxide (20.0-31.0) mmol/L 25.0 Anion Gap (3-11) mmol/L 10 BUN (9-23) mg/dL 19 Creatinine (0.55-1.02) mg/dL 0.6 Est GFR (CKD-EPI 2020) (mL/min/1.73m2) 114.83 Glucose (74-106) mg/dL 93 Calcium (8.3-10.6) mg/dL 9.8 Total Bilirubin (0.2-1.2) mg/dL 0.40 AST (<34) U/L 47 H ALT (10-49) U/L 90 H Alkaline Phosphatase (46-116) U/L 101 Total Protein (5.7-8.2) g/dL 7.4 Albumin (3.4-5.0) g/dL 4.8 Lipase (<53) U/L 124 H Urine Color (Yellow) Red Urine Clarity (Clear) Cloudy Urine pH (5-8) 7.0 Ur Specific [place] (1.005-1.025) 1.020 Urine Protein (Neg-Trace) mg/dL 30 H Urine Ketones (Negative) mg/dL Negative Urine Blood (Negative) Large H Urine Nitrite (Negative) Negative Urine Bilirubin (Negative) Negative Urine Urobilinogen (Up to 0.2) mg/dL 0.2 Ur Leukocyte Esterase (Negative) Negative Urine RBC (0-2) HPF >50 H Urine WBC (0-5) HPF 3-5 Ur Epithelial Cells (Negative) HPF Rare Urine Crystals (Negative) HPF Negative Urine Bacteria (Negative) HPF Rare Urine Casts (Negative) LPF Negative Urine Mucus (Negative) Negative Ur Culture Indicated? No Urine Glucose (Negative) mg/dL Negative POC- Test(urine) Negative Medical Decision Making This dictation utilizes [id number] dictation software and may contain unedited grammatical errors. 34 year-old female presents to ED today by POV/ambulating with a chief complaint of nausea, vomiting, and diarrhea with some flank pain with onset around 0300 this morning- questions if it's related to her lithotripsy one week ago. Quality described as generalized GI symptoms, swollen lymph nodes in neck, no radiation to fever, cough, shortness of breath, chest pain, hematochezia/melena. Severity is described as moderate. Palliating factors include nothing specific. Provoking factors include nothing specific. Patients' medical history: Horseshoe kidney, acid reflux, kidney stones. Family and social history: noncontributory. Pertinent exam findings / vital signs include bilateral CVA tenderness to percussion, RUQ/epigastric tenderness, benign CP exam. Differential / pathologies of concern include infected kidney stone, gastroenteritis, pyelonephritis, UTI, lumbar radiculopathy, biliary colic Diagnostic studies of: - CBC, CMP, lactate, lipase, UA, CT ABD/pelvis with contrast, US ABD Limited right upper quadrant. -CBC shows a nonspecific leukocytosis at 10.8 without left shift - Lactate negative - CMP shows no abnormality save for mild elevation of AST and ALT - Lipase 124 - pancreatitis, reflexing US RUQ to check for gallstones - UA shows large amount of blood and some protein but recent lithotripsy makes this nonspecific - CT is unremarkable with some post lithotripsy fragmentation - Ultrasound of the right upper quadrant shows no cholecystitis or gallstones Interventions of: - 50 mL IV Toradol, 4 mg IV Zofran, 1 g IV Tylenol, 1 L IVF NS, 3 tabs Zofran to go. ED Course/Assessment/Plan: 34-year-old female presents with nausea vomiting and diarrhea and generalized GI illness as well as lithotripsy on renal stones 10 days ago, your urine is unremarkable for any signs of infection, CT of the abdomen is benign remnants of lithotripsy, patient has nonspecific leukocytosis, negative lactate do not suspect sepsis, has elevated lipase of 124 possible gallstone pancreatitis but ultrasound was negative for any gallstones or cholecystitis, patient has mildly elevated LFTs, counseled on general care for pancreatitis including bowel rest clear fluid diet and conservative pain management provided nausea tablets ago, patient was comfortable with this plan and will return for any acute emergencies. Findings not consistent with cholecystitis, gallstone pancreatitis, UTI, pyelonephritis, obstructive uropathy, sepsis. Disposition of Pancreatitis. Patient verbalized understanding of the plan and return to ED criteria and engaged in shared decision making. Medical Records Medical records reviewed: Yes I reviewed the patient's medical records. Imaging Data Radiologic Study: Attestation: I personally reviewed and interpreted this imaging study as follows: Imaging: CT Scan Radiologist's impression: EXAM: CT ABDOMEN PELVIS WO CLINICAL HISTORY: exquisite ABD pain; lithotripsy 10d ago. TECHNIQUE: Imaging Protocol: Axial computed tomography images with coronal and sagittal reformatted images were created and reviewed. Oral: / no COMPARISON: CT CT ABDOMEN PELVIS WO from 12/24/2024 US US RENAL from 01/18/2025 CR XR ABDOMEN FLAT PLATE from 01/18/2025 XA XR RETROGRADE IN OR from 01/31/2025 FINDINGS: Lung Bases: No acute findings. Liver: Normal density. No suspicious mass. Gallbladder and biliary tract: No radiodense calculus or biliary dilation. Pancreas: Normal density. No abnormal calcifications or inflammatory process. Spleen: Normal. Kidneys: A horseshoe kidney is again noted. Interval decrease in size of previously noted calcification at the lower pole of the right moiety. Fragment of the calcifications now position within a midpole gayla. This measures 12 x 5 millimeters and appears partially fragmented. Stable dilatation of the right renal pelvis. Adrenal glands: No masses seen. Lymph nodes: Within normal limits. Vasculature: Abdominal aorta non-dilated. Soft tissues: Unremarkable. Bladder: No wall thickening. No mass or calculi. Bowel: No obstruction or bowel wall thickening. Mild diverticulosis. Normal quantity of stool. Appendix appears normal. Peritoneal cavity: No ascites. No focal collection. No mesenteric inflammatory response. Reproductive organs: Unremarkable. Bones: Unremarkable for age. IMPRESSION: Status post lithotripsy with some fragmentation of the previously noted stone noted at the right lower pole with a portion now seen within the mid pole calyx. Stable dilatation of the right renal pelvis without visible obstructing stone. Radiologic Study #2: Attestation: I personally reviewed and interpreted this imaging study as follows: Imaging: Ultrasound Radiologist's impression: EXAM: US ABDOMEN LIMITED CLINICAL HISTORY: RUQ; elev lipase TECHNIQUE: Ultrasound of the right upper quadrant performed using standard protocol. COMPARISON: CT CT ABDOMEN PELVIS WO from 02/08/2025 FINDINGS: LIVER: Normal size. Normalechogenicity. No focal liver lesions are seen.. GALLBLADDER: No evidence of cholelithiasis. No evidence of wall thickening. No pericholecystic fluid identified. CHAPMAN'S SIGN: Negative. BILIARY SYSTEM: No intrahepatic or extrahepatic biliary ductal dilation. RIGHT KIDNEY: Partial kidney. 11 millimeter stone mid pole. 10 millimeter stool stone inferior pole. Dilated right renal pelvis.. No suspicious renal mass. No cyst identified. PANCREAS: Normal where visualized. ABDOMINAL AORTA AND IVC: Visualized portions normal caliber. ASCITES: None seen. IMPRESSION: Right nephrolithiasis. Dilated right renal pelvis. Lab Data Lab results reviewed: Yes I reviewed the patient's lab results. Labs: Laboratory Tests Range/Units 02/08/25 02/08/25 09:06 09:58 WBC (4.4-10.8) 10^3/uL 10.82 H RBC (3.93-5.22) 10^6/uL 5.66 H Hgb (11.2-15.7) g/dL 15.6 Hct (36.0-46.0) % 46.5 H MCV (80-95) fL 82 MCH (27.0-33.0) pg 27.6 MCHC (32.0-36.0) % 33.5 RDW (11.7-14.6) % 13.0 Plt Count (130-400) 10^3/uL 339 MPV (8.0-11.0) fL 8.7 Immature Gran % % 0.3 Neutrophils % % 64.3 Lymphocytes % % 26.9 Monocytes % % 5.0 Eosinophils % % 3.0 Basophils % % 0.5 Nucleated RBC % (0.0-0.3) % 0.0 Absolute Neutrophils (1.2-6.7) 10^3/uL 6.96 H Absolute Lymphocytes (1.2-3.4) 10^3/uL 2.91 Absolute Monocytes (0.1-0.8) 10^3/uL 0.54 Absolute Eosinophils (0.0-0.7) 10^3/uL 0.32 Absolute Basophils (0.0-0.2) 10^3/uL 0.05 VBG Lactate (<or=2.0) mmol/L 1.3 Sodium (136-145) mmol/L 141 Potassium (3.5-5.1) mmol/L 3.9 Chloride (98-107) mmol/L 106 Carbon Dioxide (20.0-31.0) mmol/L 25.0 Anion Gap (3-11) mmol/L 10 BUN (9-23) mg/dL 19 Creatinine (0.55-1.02) mg/dL 0.6 Est GFR (CKD-EPI 2020) (mL/min/1.73m2) 114.83 Glucose (74-106) mg/dL 93 Calcium (8.3-10.6) mg/dL 9.8 Total Bilirubin (0.2-1.2) mg/dL 0.40 AST (<34) U/L 47 H ALT (10-49) U/L 90 H Alkaline Phosphatase (46-116) U/L 101 Total Protein (5.7-8.2) g/dL 7.4 Albumin (3.4-5.0) g/dL 4.8 Lipase (<53) U/L 124 H Urine Color (Yellow) Red Urine Clarity (Clear) Cloudy Urine pH (5-8) 7.0 Ur Specific [place] (1.005-1.025) 1.020 Urine Protein (Neg-Trace) mg/dL 30 H Urine Ketones (Negative) mg/dL Negative Urine Blood (Negative) Large H Urine Nitrite (Negative) Negative Urine Bilirubin (Negative) Negative Urine Urobilinogen (Up to 0.2) mg/dL 0.2 Ur Leukocyte Esterase (Negative) Negative Urine RBC (0-2) HPF >50 H Urine WBC (0-5) HPF 3-5 Ur Epithelial Cells (Negative) HPF Rare Urine Crystals (Negative) HPF Negative Urine Bacteria (Negative) HPF Rare Urine Casts (Negative) LPF Negative Urine Mucus (Negative) Negative Ur Culture Indicated? 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 Myles. Last seen 12/20/24 RLS (restless legs syndrome) Surgical History (Updated 02/04/25 @ 12:15 by Juan Baxter MD) History of ureteroscopy Hx of section x2 Hx of colonoscopy Hx of lithotripsy Social History Smoking/Tobacco Use Status: Former Tobacco Use Quit Date: 03/24/14 Smoking risk assessment performed?: Yes Alcohol Intake: current Alcohol Intake frequency: holidays/special occasions only Drug use: Daily Substance use type: marijuana Housing: house Additional Social history: [employer]
--- NOTE | 2025-02-08 10:45 | DI.US_ITS ---
Exam(s) US ABDOMEN LIMITED EXAM: US ABDOMEN LIMITED CLINICAL HISTORY: RUQ; elev lipase TECHNIQUE: Ultrasound of the right upper quadrant performed using standard protocol. COMPARISON: CT CT ABDOMEN PELVIS WO from 02/08/2025 FINDINGS: LIVER: Normal size. Normalechogenicity. No focal liver lesions are seen.. GALLBLADDER: No evidence of cholelithiasis. No evidence of wall thickening. No pericholecystic fluid identified. HERNANDEZ'S SIGN: Negative. BILIARY SYSTEM: No intrahepatic or extrahepatic biliary ductal dilation. RIGHT KIDNEY: Partial kidney. 11 millimeter stone mid pole. 10 millimeter stool stone inferior pole. Dilated right renal pelvis.. No suspicious renal mass. No cyst identified. PANCREAS: Normal where visualized. ABDOMINAL AORTA AND IVC: Visualized portions normal caliber. ASCITES: None seen. IMPRESSION: Right nephrolithiasis. Dilated right renal pelvis. DATA REPOSITORY:
[2025-02-08 11:33] VITALS: BP 114/56; PULSE 75; RESP 13; TEMP 36.7; O2SAT 97
[2025-02-08] MEDS: Ondansetron O.D.T. 4 MG TABEF, 3 TABS/BTL PO (12:29)
[2025-02-08 12:32] VITALS: BP 120/62; PULSE 78; RESP 15; O2SAT 98
--- NOTE | 2025-02-16 12:05 | NUR.NOTE ---
Patient presented to Lab stating that she thought that she was to have follow up labs and to be ordered by ED. The provider discharge states that she should contact her PCP to have them recheck the lipase. Lab was told this and they will call the PCP. Nursing Note:
== END 2025-02-08 12:37 | disposition home or self-care (01) ==
PROVIDERS: Emergency Provider Physician Assistant; PCP Family Medicine
DX: K85.90 Acute pancreatitis without necrosis or infection, unspecified (principal)
CPT/HCPCS: 99284; 99285; 36415; 81025; 96374; 96375; 80053; 83690; 74176; 76705; 81003; 81015; 83605; 85025; J0131; J1885; J2405

== ENCOUNTER 2025-02-16 12:21 | Outpatient (CLI) | payer MEDICAID, SELFPAY ==
[2025-02-16 12:59] LABS: Abs Immature Grans 0.03 10^3/uL (0.0-0.06); HCT 40.4 % (36.0-46.0); HGB 13.9 g/dL (11.2-15.7); Immature Grans % 0.4 %; MCH 28.0 pg (27.0-33.0); MCHC 34.4 % (32.0-36.0); MCV 82 fL (80-95); MPV 9.0 fL (8.0-11.0); Platelet Count 338 10^3/uL (130-400); RBC 4.96 10^6/uL (3.93-5.22); RDW 12.9 % (11.7-14.6); RDW-SD 38.4 fL; WBC 7.93 10^3/uL (4.4-10.8)
[2025-02-16 14:04] LABS: ALT 23 U/L (10-49); AST 15 U/L (<34); Albumin 4.3 g/dL (3.2-5.0); Alkaline Phosphatase 80 U/L (46-116); Anion Gap 6.6 mmol/L (3-11); BUN 15 mg/dL (9-23); Bilirubin, Total 0.40 mg/dL (0.2-1.2); CO2 25.4 mmol/L (20.0-31.0); Calcium 9.5 mg/dL (8.3-10.6); Chloride 109 mmol/L (98-107); Glucose 96 mg/dL (74-106); Potassium 3.7 mmol/L (3.5-5.1); Sodium 141 mmol/L (136-145); Total Protein 6.5 g/dL (5.7-8.2)
[2025-02-18 11:05] LABS: Oxcarbazepine Metabolite, S 9 mcg/mL (10 - 35)
== END 2025-02-16 12:22 | disposition home or self-care (01) ==
LOC: LBO 12:21
PROVIDERS: PCP Family Medicine; Visit Provider Psychiatry & Neurology Neurology
DX: G40.109 Localization-related (focal) (partial) symptomatic epilepsy and epileptic syndromes with simple partial seizures, not intractable, without status epilepticus (principal)
CPT/HCPCS: 36415; 80053; 80183; 85025

== ENCOUNTER → 2025-03-23 09:37 | Outpatient (CLI) | payer MEDICAID, SELFPAY ==
--- NOTE | 2025-03-23 06:15 | DI.US_ITS ---
Exam(s) US RENAL EXAM: US RENAL CLINICAL HISTORY: ? hydronephrosis after ureteroscopy,CALCULUS OF KIDNEY,HORSESHOE KIDNEY, TECHNIQUE: Ultrasound of both kidneys performed using standard protocol. COMPARISON: US US ABDOMEN LIMITED from 02/08/[address] ABDOMEN PELVIS WO from 02/08/2025 FINDINGS: Please note that there is horseshoe configuration of the kidneys, as best seen on the recent CT scan of 02/08/2025. This makes accurate evaluation of individual kidney size difficult RIGHT KIDNEY: Although there is no caliectasis, there is dilatation of the right renal pelvis and there are 2 calculi at the right ureteropelvic junction, these measuring 10 and 7 mm. I suspect that these are the 2 calculi which were evident with in the kidney when the patient was in the supine position for the recent CT scan of 02/08/2025. There are no solid renal masses nor cysts evident. Normal corticomedullary differentiation. LEFT KIDNEY: Normal cortical thickness and corticomedullary differentiation. No dilatation of the left renal calices and no calculi seen within the ???left kidney???. No solid renal masses nor cysts. URINARY BLADDER: Prevoid volume is 74 cc Postvoid volume is 2.5 cc No evidence of bladder mass nor diverticuli. No echogenic calculi seen within the bladder lumen. Ureterovesical jets: Both not identified. IMPRESSION: 1. Horseshoe kidney configuration. Dilated right renal pelvis with 2 calculi in the distal renal pelvis at the UPJ level. These are most probably the calculi which were previously with in the kidney when the patient was in the supine position during the CT scan of 02/08/2025. These have most probably migrated out of the kidney into the ipsilateral renal pelvis since that time. 2. Please note that the lack of detection of both ureterovesical jets may be related to the horseshoe configuration more than true obstruction. The course of the ureters is altered significantly with horseshoe kidney variant. I note that there was no jet evident on the left side; and the left side head no calculi on the recent CT scan. DATA REPOSITORY:
== END ==
LOC: DI 09:37
PROVIDERS: PCP Family Medicine; Visit Provider Urology
DX: N20.0 Calculus of kidney (principal); Q63.1 Lobulated, fused and horseshoe kidney
CPT/HCPCS: 76770